=== PATIENT | male | born 1980 | race Caucasian/White ===

== ENCOUNTER 2016-08-09 10:44 | Emergency (ER) | payer BC, MEDICAID ==
[2016-08-09] MEDS ORDERED: LORAZEPAM 2 MG/ML VIAL IV ONE (11:18)
--- NOTE | 2016-08-09 11:24 | Emergency Department Record ---
History of Present Illness - General Chief Complaint: Shortness of breath Stated Complaint: BJ/SLEEPING A LOT/LIGHT HEADED Time Seen by Provider: 08/09/16 11:16 Source: Patient Mode of Arrival: Wheelchair Limitations: No limitations - History of Present Illness Initial Comments: 36 yo male presents to ED for evaluation of shortness of breath and "numbness" to the hands bilaterally. Patient denies fevers, chills, or recent illness. Patient's mother denies any health problems at his baseline. MD Complaint: Shortness of breath Onset/Timin -: Days(s) Severity: Moderate Severity scale (1-10): 2 Consistency: Constant Improves With: Nothing Worsens With: Nothing Known History Of: Other Associated Symptoms: Parasthesias Treatments Prior to Arrival: None - Related Data Home Oxygen Therapy: No Home Medications Medication Instructions Recorded Confirmed Last Taken Atenolol 50 mg PO DAILY 08/09/16 08/09/16 1 Day Ago ~08/08/16 Methadone HCl 90 mg PO DAILY 08/09/16 08/09/16 1 Day Ago ~08/08/16 Topiramate [Topamax] 100 mg PO DAILY 08/09/16 08/09/16 1 Day Ago ~08/08/16 Allergies Allergy/AdvReac Type Severity Reaction Status Date / Time No Known Drug Allergies Allergy Verified 08/09/16 11:05 Travel Screening - Travel/Exposure Within Last 30 Days Have you traveled within the last 30 days?: No - Travel/Exposure Within Last Year Have you traveled outside the [place] in the last year?: No - Additonal Travel Details Have you been exposed to anyone with a communicable illness?: No - Travel Symptoms Symptom Screening: None Review of Systems Constitutional: Denies: Chills, Fever, Malaise, Night sweats Eyes: Denies: Eye discharge, Eye pain ENT: Denies: Congestion, Ear pain Respiratory: Reports: Dyspnea. Denies: Cough Cardiovascular: Reports: Dyspnea on exertion. Denies: Chest pain Endocrine: Denies: Fatigue, Heat or cold intolerance Gastrointestinal: Denies: Abdominal pain, Nausea, Vomiting Genitourinary: Denies: Incontinence, Retention Musculoskeletal: Denies: Arthralgia, Back pain, Gout, Joint swelling Skin: Denies: Bruising, Change in color Neurological: Denies: Abnormal gait, Confusion, Headache, Seizure Psychiatric: Reports: Anxiety Hematological/Lymphatic: Denies: Anemia, Blood Clots Past Medical History - SOCIAL HISTORY Smoking Status: Light tobacco smoker (<10/day) - RESPIRATORY Hx Respiratory Disorders: Yes Comment:: SEASONAL ALLERGIES - CARDIOVASCULAR Hx Cardio Disorders: No - NEURO Hx Neuro Disorders: No - GI Hx GI Disorders: Yes Hx Reflux: Yes - Hx Genitourinary Disorders: No - ENDOCRINE Hx Endocrine Disorders: No - MUSCULOSKELETAL Hx Musculoskeletal Disorders: No - PSYCH Hx Psych Problems: No - HEMATOLOGY/ONCOLOGY Hx Hematology/Oncology Disorders: No Family Medical History Any Significant Family History?: Yes Hx Diabetes: Mother Hx Heart Disease: Father *Heart Comment: pacemaker Hx HTN: Mother Physical Exam - General General Appearance: Alert, Oriented x3, Cooperative, Moderate distress, Other ( Patient is diaphoretic, hyperventilating, cannot provide much HPI) - Head Head exam: Atraumatic, Normocephalic, Normal inspection Head exam detail: negative: Abrasion, Contusion, Callejas's sign, General tenderness, Hematoma, Laceration - Eye Eye exam: Normal appearance. negative: Conjunctival injection, Periorbital swelling, Periorbital tenderness, Scleral icterus - ENT Ear exam: negative: Auricular hematoma, Auricular trauma Nasal Exam: negative: Active bleeding, Discharge, Dried blood, Foreign body Mouth exam: negative: Drooling, Laceration, Muffled voice, Tongue elevation - Neck Neck exam: Normal inspection. negative: Meningismus, Tenderness - Respiratory Respiratory exam: Decreased breath sounds, Respiratory distress. negative: Rhonchi, Stridor, Wheezes - Cardiovascular Cardiovascular Exam: Normal rhythm, Normal heart sounds, Tachycardia - GI/Abdominal GI/Abdominal exam: Soft, Other (obese). negative: Rebound, Rigid, Tenderness - Rectal Rectal exam: Deferred - exam: Deferred - Extremities Extremities exam: Pedal edema, Other ([id number]-[id number] lymphedema bilaterally with scabbed lesions present). negative: Calf tenderness - Back Back exam: Denies: CVA tenderness (R), CVA tenderness (L) - Neurological Neurological exam: Alert, Normal gait, Oriented X3 - Psychiatric Psychiatric exam: Anxious - Skin Skin exam: Normal color. negative: Abrasion Type of lesion: negative: abrasion Course Vital Signs 08/09/16 10:53 Temperature 97.8 F Pulse Rate 79 Respiratory 30 H Rate Pulse Ox 98 - Reevaluation(s) Reevaluation #1: 08/09/16 11:23 Patient seen and examined, appears anxious. Will initiate orders for CTA to eclude PE< administer Ativan for possible anxieyt, obtain stat EKG and perform bedside US to visualize the heart motion and exclude pericardial effusion. Reevaluation #2: 08/09/16 11:45 EKG: NST 96 Normal axis, normal intervals Q waves III Reevaluation #3: 08/09/16 12:06 IV established under US guidance. Bedside US performed: No effusion, no obvious pump malfunction noted. Reevaluation #4: 08/09/16 12:17 Portable CXR: Cardiomegaly, nothing acute Reevaluation #5: 08/09/16 13:[address] for imaging, appears c/w moderate bilateral PEs. Heparin initiated bolus/qttp upon return. Will initiate transfer to [facility] per family request. CTA findings d/w Dr. Sears, Large emboli left, Moderate right. 08/09/16 13:03 Case was discussed with Dr. Boykin, will accept admission to ICU bed #9. Patient and family updated on all results, plan of care, and plan for transfer at this time. 08/09/16 13:21 Medical Decision Making - Lab Data Result diagrams: 08/09/16 12:03 08/09/16 12:03 Critical Care Time Critical Care Time: Yes Total Critical Care Time: 90 Critical Care Time: Diagnosis and treatment of significant bilateral PE, excluding acute cardiac process (pericardial effusion, MT), frequent reassessment, initiation of heparin bolus/qttp, arranging transfer to ICU. Disposition Disposition: Transfer Clinical Impression: Pulmonary emboli Qualifiers: Pulmonary embolism type: other Chronicity: acute Acute cor pulmonale presence: with acute cor pulmonale Qualified Code(s): I26.09 - Other pulmonary embolism with acute cor pulmonale Disposition: Acute Care Hospital Transfer Transfer To: [facility] Reason For Transfer: PE, ICU Accepting Physician: Ashutosh Time Discussed w/Accepting Physician: 13:03 Condition: (3) Guarded Forms: Patient Portal Access Time of Disposition: 13:03
[2016-08-09] MEDS ORDERED: 0.9 % SODIUM CHLORIDE 1000ML 1,000 ML IV SCH (11:30)
[2016-08-09 12:12] LABS: HEMATOCRIT 41.5 % (42.0-52.0); HEMOGLOBIN 13.3 gm/dl (14.0-18.0); MEAN CELL VOLUME 80.6 fl (81-97); MEAN CORPUSCULAR HEMOGLOBIN 25.8 pg (27-33); PLATELET COUNT 140 K/uL (130-400); RED BLOOD COUNT 5.15 M/uL (4.40-5.70); RED CELL DISTRIBUTION WIDTH 15.4 % (11.5-14.5); WHITE BLOOD COUNT W/O DIFF 14.5 K/uL (4.2-12.2)
[2016-08-09 12:21] LABS: ALBUMIN 4.4 gm/dL (3.5-5.0); ALKALINE PHOSPHATASE 65 U/L (38-126); ALT/SGPT 18 U/L (21-72); ANION GAP 16.5 (7-16); AST/SGOT 21 U/L (17-59); BLOOD UREA NITROGEN 16 mg/dL (9-20); CARBON DIOXIDE 18.5 mmol/L (22-30); CREATINE PHOSPHOKINASE 72 U/L (55-170); CREATININE 0.9 mg/dL (0.66-1.25); EST GLOMERULAR FILTRATION RATE > 60 ml/min; GLUCOSE,RANDOM 207 mg/dL (70-110); TOTAL PROTEIN 8.6 gm/dL (6.3-8.2)
[2016-08-09 12:34] LABS: CKMB 1.3 ug/L (0-6)
[2016-08-09 13:00] LABS: TROPONIN I 0.271 ng/mL (0.00-0.034)
[2016-08-09] MEDS ORDERED: HEPARIN SODIUM 1000 UNIT/1 ML 10ML VIAL IVP ONE (13:00)
[2016-08-09] MEDS ORDERED: HEPARIN SODIUM/D5W 25,000 UNITS/500 ML BAG IV SCH ×2 (13:00→13:15)
--- NOTE | 2016-08-10 23:20 | RADIOLOGY REPORT ---
EXAM: CHEST AP or PA ONLY HISTORY: DIFFICULTY BREATHING. TECHNIQUE: A single AP upright view of the chest was performed. COMPARISON: 01/02/15. FINDINGS: There are low lung volumes. The heart projects mildly enlarged. The mediastinum and pulmonary vasculature are normal. There are no acute infiltrates or effusions. There is no pneumothorax. There are multiple old healed left rib fractures. IMPRESSION: 1. LOW LUNG VOLUMES. 2. BORDERLINE CARDIOMEGALY. 3. NO ACUTE CHEST PATHOLOGY. JOB NUMBER: [id number] [facility]
--- NOTE | 2016-08-10 23:31 | CT ANGIOGRAM REPORT ---
EXAM: CT ANGIOGRAM CHEST CTA w contrast HISTORY: CHEST PAIN AND DIFFICULTY BREATHING. TECHNIQUE: CT angiography of the chest was performed with postprocessing following the bolus administration of 200 mL of Omnipaque-350. Additional coronal and sagittal maximum intensity projection reformatted images were performed on an independent workstation under concurrent supervision. COMPARISON: Chest x-ray from the same date and previous CT scan of the abdomen dated 10/04/12. FINDINGS: The heart is mildly enlarged. There is no pericardial effusion. The aorta is normal in caliber with no dissection. There are large emboli within the left main pulmonary artery and extending into the upper and lower lobe branches. There are moderate-sized emboli within the right upper, middle, and lower lobe branches. There is relative enlargement of the right ventricle consistent with right heart strain. There is mild reflux of contrast material into the inferior vena cava and hepatic veins. There are minor areas of atelectasis or scarring within both lungs. Breathing motion artifact is present. Minor paraseptal emphysematous changes are present within the right lung. There are no acute infiltrates or effusions. There is diffuse fatty infiltration of the liver. There is a 13 x 15 mm low-density nodule within the left adrenal gland, likely representing an adenoma. This is unchanged from the prior study. IMPRESSION: 1. LARGE LEFT AND MODERATE RIGHT PULMONARY EMBOLI WITH ASSOCIATED RIGHT HEART STRAIN. 2. NO ACUTE PULMONARY INFILTRATES. 3. FATTY INFILTRATION OF THE LIVER. 4. STABLE LEFT ADRENAL ADENOMA. J[facility]BER: [id number] [facility]
== END 2016-08-09 14:03 | disposition short-term general hospital (02) ==
LOC: ER 10:44
DX: I26.09 Other pulmonary embolism with acute cor pulmonale (principal); R06.02 Shortness of breath; R20.0 Anesthesia of skin; F17.210 Nicotine dependence, cigarettes, uncomplicated
CPT/HCPCS: 99285 ×2; 96365; 96375; 82550; 82553; 84484; 80053; 85379; 85027; 83880; 71010; 71275; 93005; 93010; Q9967